=== PATIENT | female | born 1955 | race Hispanic/Latino ===

== ENCOUNTER 2023-05-25 11:13 | Emergency (ER) | payer MEDICARE ==
[2023-05-25 12:15] LABS: Hemoglobin 13.1 g/dL (12.0-15.5); Mean Corpuscular HGB CONC 34.9 g/dL (32.0-36.0); Mean Corpuscular Hemoglobin 28.5 pg (27.0-33.0); Mean Corpuscular Volume 81.5 fl (81.6-98.3); Mean Platelet Volume 8.6 fl (7.4-10.4); Platelet Count 240 10x3/uL (150-450); RBC Distribution Width 12.1 % (11.5-14.5); White Blood Cell (WBC) Count 6.6 10x3/uL (3.5-10.5)
[2023-05-25 12:29] LABS: ALT (SGPT) 21 U/L (8-55); AST (SGOT) 22 U/L (5-34); Albumin 4.6 g/dL (3.4-4.8); Alkaline Phosphatase 89 U/L (40-110); Anion Gap 16 mmol/L (10-20); BUN (Urea Nitrogen) 13 mg/dL (9.8-20.1); Bilirubin, Total 0.5 mg/dL (0.2-1.2); Calc. Creatinine Clearance 0 mL/min (70-130); Calcium 8.8 mg/dL (7.8-10.44); Carbon Dioxide 24 mmol/L (23-31); Chloride 106 mmol/L (98-107); Estimated GFR 95; Globulin 2.2 g/dL (2.4-3.5); Glucose 103 mg/dL (80-115); Potassium 3.9 mmol/L (3.5-5.1); Protein, Total 6.8 g/dL (5.8-8.1); Sodium 142 mmol/L (136-145)
[2023-05-25 12:43] LABS: MDiff Complete? YES
[2023-05-25 12:55] LABS: Eosinophils 2 % (0-10); Neutrophil 39 % (42-75)
[2023-05-25 13:00] LABS: Lymphocytes 52 % (21-51); Monocytes 7 % (0-10); Platelet Adequacy Comment Appears Adequate; RBC Morph Comment Within Normal Limits
[2023-05-25] MEDS ORDERED: Prochlorperazine 10 MG/2 ML VIAL ONE (13:05)
[2023-05-25] MEDS ORDERED: Ketorolac Tromethamine 30 MG/ML VIAL ONE (13:05)
[2023-05-25] MEDS ORDERED: diphenhydrAMINE 50 MG/ML VIAL ONE (13:05)
== END 2023-05-25 17:20 | disposition home or self-care (01) ==
LOC: CSHERS 11:13
DX: R51.9 Headache, unspecified (principal); E78.5 Hyperlipidemia, unspecified; I10 Essential (primary) hypertension; Z79.899 Other long term (current) drug therapy
CPT/HCPCS: 70450; 80053; 84484; 85025; 85652; 93005; 96374; 96375; J0780; J1200; J1885